=== PATIENT | female | born 1980 | race Caucasian/White ===

== ENCOUNTER 2017-10-30 16:33 | Emergency (ER) | payer BC ==
[2017-10-30 17:07] VITALS: BP 130/80
--- NOTE | 2017-10-30 18:04 | UC ---
Respiratory Complaint HPI - HPI Summary HPI Summary: 36 yo WF c/o 2weeks of nasal congestion associated with foul smells and sore throat and frontal sinus pressure. Denies f/c or cough or nasal d/c - History of Current Complaint Chief Complaint: UCRespiratory Stated Complaint: SORE THROAT Time Seen by Provider: 10/30/17 17:22 Hx Obtained From: Patient Onset/Duration: Lasting Weeks Severity Initially: Moderate Pain Intensity: 5 - Allergies/Home Medications Allergies/Adverse Reactions: Allergies Allergy/AdvReac Type Severity Reaction Status Date / Time No Known Allergies Allergy Verified 10/30/17 17:07 Home Medications: Home Medications Desvenlafaxine Succinate [Pristiq] 50 mg PO 10/30/17 [History] Guaifen/Phenyleph/Acetaminophn [Tylenol Cold Head Congest Cplt] 1 each PO [History] PMH/Surg Hx/FS Hx/Imm Hx - Additional Past Medical History Additional PMH: none - Surgical History Surgical History: Yes Surgery Procedure, Year, and Place: - Social History Alcohol Use: Occasionally Substance Use Type: None Smoking Status (MU): Never Smoked Tobacco Review of Systems Constitutional: Negative Skin: Negative Eyes: Negative ENT: Sinus Congestion, Sinus Pain/Tenderness, Other Respiratory: Negative Cardiovascular: Negative Gastrointestinal: Negative Genitourinary: Negative Motor: Negative Neurovascular: Negative Musculoskeletal: Negative Neurological: Negative Psychological: Negative All Other Systems Reviewed And Are Negative: Yes Physical Exam Triage Information Reviewed: Yes Vital Signs: Initial Vital Signs Temp 36.8 C 10/30/17 17:02 Pulse 82 10/30/17 17:02 Resp 18 10/30/17 17:02 BP 130/80 10/30/17 17:02 Pulse Ox 99 10/30/17 17:02 Eye Exam: Normal ENT: Positive: Pharyngeal erythema, Other - foul pharyngeal odor and swollen red turbinates Dental Exam: Normal Neck exam: Normal Neck: Positive: 1 Respiratory Exam: Normal Cardiovascular Exam: Normal Abdominal Exam: Normal Musculoskeletal Exam: Normal Neurological Exam: Normal Psychological Exam: Normal Skin Exam: Normal UC Diagnostic Evaluation - Laboratory O2 Sat by Pulse Oximetry: 99 Respiratory Course/Dx - Course Course Of Treatment: suspect occult sinus infection w/o obvious nasal d/c - Differential Dx/Diagnosis Provider Diagnoses: Bacterial Sinus Infection Discharge - Discharge Plan Condition: Stable Disposition: HOME Prescriptions: Amoxicillin PO (*) [Amoxicillin 875 MG (*)] 875 mg PO BID 7 Days #14 tab Pseudoephedrine HCL ER TAB* [Sudafed 12 Hour*] 120 mg PO BID PRN 5 Days #10 tab.er PRN Reason: Congestion Patient Education Materials: Sinusitis (ED) Referrals: Janice Gamboa MD [Primary Care Provider] - Additional Instructions: take medications as prescribed and add on Benadryl at night if congestion persists
== END 2017-10-30 18:00 | disposition home or self-care (01) ==
LOC: EDSEX → UCEAST 16:33 → MERGE 16:33 → UCEAST 18:00
DX: J32.9 Chronic sinusitis, unspecified (principal); B96.89 Other specified bacterial agents as the cause of diseases classified elsewhere
CPT/HCPCS: 87651; 99202; G0463

== ENCOUNTER 2018-11-24 16:53 | Emergency (ER) | payer BC ==
[2018-11-24 17:22] VITALS: BP 124/77
--- NOTE | 2018-11-24 17:24 | UC ---
Skin Complaint HPI - HPI Summary HPI Summary: 37 yo female presents with rash on her face for the last week. She tells me that about a week ago she noticed, what she thought was a pimple to her right chin. Since that time more similar appearing red pimples have appeared. Mildly itchy - no pain. She has tried popping these with no relief or discharge. Says has not spread over the last 2-3 days, but not improving. No recent illness and is feeling well otherwise. 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 Denies fever, chills, rash elsewhere, sinus symptoms, sore throat , cough. - History of Current Complaint Chief Complaint: UCSkin Time Seen by Provider: 11/24/18 17:24 Stated Complaint: RASH Hx Obtained From: Patient Hx Last Menstrual Period: 2 weeks ago Onset/Duration: Gradual Onset Current Severity: None Pain Intensity: 0 - Allergy/Home Medications Allergies/Adverse Reactions: Allergies Allergy/AdvReac Type Severity Reaction Status Date / Time No Known Allergies Allergy Verified 11/24/18 17:16 Home Medications: Home Medications Albuterol HFA INHALER* [Ventolin HFA Inhaler*] 1 puff INH Q4H PRN 11/24/18 [ History Confirmed 11/24/18] PMH/Surg Hx/FS Hx/Imm Hx Respiratory History: Asthma Psychological History: Anxiety, Depression - Surgical History Surgical History: Yes Surgery Procedure, Year, and Place: - Social History Lives: With Family Alcohol Use: Weekly Substance Use Type: None Smoking Status (MU): Never Smoked Tobacco Review of Systems All Other Systems Reviewed And Are Negative: Yes Constitutional: Positive: Negative Skin: Positive: Rash Eyes: Positive: Negative ENT: Positive: Negative Respiratory: Positive: Negative Cardiovascular: Positive: Negative Gastrointestinal: Positive: Negative Neurovascular: Positive: Negative Psychological: Positive: Negative Physical Exam - Summary Physical Exam Summary: GENERAL: NAD. WDWN. No pain distress. SKIN: RIGHT chin: Five small mildly erythematous pustules. No drainage, streaking, warmth, edema, blistering, or crusting. NECK: Supple. Nontender. No lymphadenopathy. CHEST: No accessory muscle use. Breathing comfortably and in no distress. CV: Pulses intact. Cap refill <2seconds NEURO: Alert. PSYCH: Age appropriate behavior. Triage Information Reviewed: Yes Vital Signs: Initial Vital Signs Temp 98.3 F 11/24/18 17:17 Pulse 60 11/24/18 17:17 Resp 18 11/24/18 17:17 BP 124/77 11/24/18 17:17 Pulse Ox 100 11/24/18 17:17 Vital Signs Reviewed: Yes Course/Dx - Course Course Of Treatment: Suspect acne. Rx for clindamycin topical and f/u if symptoms do not improve. - Diagnoses Provider Diagnosis: Acne Discharge - Sign-Out/Discharge Documenting (check all that apply): Patient Departure All imaging exams completed and their final reports reviewed: No Studies - Discharge Plan Condition: Stable Disposition: HOME Prescriptions: Clindamycin 1% TOPICAL(NF) [Cleocin-T 1% TOPICAL(NF)] 1 % TOPICAL BID #1 tube Patient Education Materials: Clindamycin (On the skin) Referrals: Janice Gamboa MD [Primary Care Provider] - Additional Instructions: If you develop a fever, shortness of breath, chest pain, new or worsening symptoms - please call your PCP or go to the ED. - Billing Disposition and Condition Condition: STABLE Disposition: Home
== END 2018-11-24 17:50 | disposition home or self-care (01) ==
LOC: UCEAST 16:53
DX: L70.9 Acne, unspecified (principal); J45.909 Unspecified asthma, uncomplicated
CPT/HCPCS: 99212; G0463